=== PATIENT | female | born 1985 | race Caucasian/White ===

== ENCOUNTER 2019-02-05 17:08 | Outpatient (CLI) | payer OTHER ==
[2019-02-05 17:55] VITALS: BP 124/69
[2019-02-05 19:08] LABS: MICROSCOPIC AUTO
[2019-02-05 19:09] LABS: CULTURE INDICATED? NO
== END 2019-02-05 19:30 | disposition home or self-care (01) ==
LOC: LDOP 17:08
PROVIDERS: ATTEND Obstetrics & Gynecology
DX: O42.912 Preterm premature rupture of membranes, unspecified as to length of time between rupture and onset of labor, second trimester (principal); Z3A.20 20 weeks gestation of pregnancy
CPT/HCPCS: 59025; 81001; 84112; 99211; G0463

== ENCOUNTER 2019-04-11 14:30 | Outpatient (CLI) | payer OTHER, MEDICAID ==
[~2019-04-11] VITALS: Ht 175.3 cm; Wt 97.7 kg
== END 2019-04-11 16:24 | disposition home or self-care (01) ==
LOC: LDOP 14:30
PROVIDERS: ATTEND Obstetrics & Gynecology
DX: O26.893 Other specified pregnancy related conditions, third trimester (principal); R10.9 Unspecified abdominal pain; Z3A.29 29 weeks gestation of pregnancy
CPT/HCPCS: 59025; 81003; 87086; 99201; G0463

== ENCOUNTER 2019-04-13 12:11 | Outpatient (CLI) | payer OTHER, MEDICAID ==
[~2019-04-13] VITALS: Ht 175.3 cm; Wt 97.7 kg
[2019-04-13 12:17] VITALS: BP 116/67
== END 2019-04-13 12:50 | disposition home or self-care (01) ==
LOC: LDOP 12:11
PROVIDERS: ATTEND Obstetrics & Gynecology
DX: O26.893 Other specified pregnancy related conditions, third trimester (principal); R42 Dizziness and giddiness; Z3A.29 29 weeks gestation of pregnancy
CPT/HCPCS: 59025; 99211; G0463

== ENCOUNTER 2019-04-24 10:31 | Outpatient (CLI) | payer OTHER, MEDICAID ==
[~2019-04-24] VITALS: Ht 175.3 cm; Wt 97.7 kg
[2019-04-24 10:44] VITALS: BP 120/67
== END 2019-04-24 11:15 | disposition home or self-care (01) ==
LOC: LDOP 10:31
PROVIDERS: ATTEND Obstetrics & Gynecology
DX: O26.899 Other specified pregnancy related conditions, unspecified trimester (principal); Z3A.00 Weeks of gestation of pregnancy not specified
CPT/HCPCS: 59025; 99211; G0463

== ENCOUNTER 2019-05-05 18:54 | Outpatient (CLI) | payer OTHER, MEDICAID ==
[~2019-05-05] VITALS: Ht 175.3 cm; Wt 100.0 kg
[2019-05-05 19:48] LABS: MICROSCOPIC NOT IND
== END 2019-05-05 20:15 | disposition home or self-care (01) ==
LOC: LDOP 18:54
PROVIDERS: ATTEND Obstetrics & Gynecology
DX: O26.893 Other specified pregnancy related conditions, third trimester (principal); R60.9 Edema, unspecified; Z3A.33 33 weeks gestation of pregnancy
CPT/HCPCS: 59025; 81003; 87086; 99211; G0463

== ENCOUNTER 2019-05-07 19:33 | Outpatient (CLI) | payer OTHER, MEDICAID ==
[~2019-05-07] VITALS: Ht 175.3 cm; Wt 102.3 kg
[2019-05-07] MEDS ORDERED: PREN-59 PO (19:50)
== END 2019-05-07 20:12 | disposition home or self-care (01) ==
LOC: LDOP 19:33
PROVIDERS: ATTEND Obstetrics & Gynecology
DX: O36.8130 Decreased fetal movements, third trimester, not applicable or unspecified (principal); Z3A.34 34 weeks gestation of pregnancy
CPT/HCPCS: 59025; 99211; G0463

== ENCOUNTER 2019-05-09 13:14 | Outpatient (CLI) | payer OTHER, MEDICAID ==
[~2019-05-09] VITALS: Ht 175.3 cm; Wt 102.2 kg
[~2019-05-09 13:14] MED LIST: PREN-59 PO
[2019-05-09 13:31] VITALS: BP 127/74
[2019-05-09 14:35] LABS: AMPHETAMINE SCREEN, URINE Negative (Negative); BARBITURATE SCREEN, URINE Negative (Negative); BENZODIAZEPINE SCREEN, URINE Negative (Negative); CANNABINOID SCREEN, URINE Negative (Negative); COCAINE SCREEN, URINE Negative (Negative); METHADONE SCREEN, URINE Negative (Negative); OPIATE SCREEN, URINE Negative (Negative)
[2019-05-09 14:36] LABS: MICROSCOPIC NOT IND
== END 2019-05-09 14:55 | disposition home or self-care (01) ==
LOC: LDOP 13:14
PROVIDERS: ATTEND Obstetrics & Gynecology
DX: O36.8130 Decreased fetal movements, third trimester, not applicable or unspecified (principal); Z3A.34 34 weeks gestation of pregnancy
CPT/HCPCS: 59025; 80307; 81003; 87086; 99211; G0463

== ENCOUNTER 2020-07-30 08:13 | Emergency (ER) | payer MEDICAID, OTHER ==
[~2020-07-30] VITALS: Ht 175.3 cm; Wt 87.8 kg
--- NOTE | 2020-07-30 10:17 | NUR ---
PT TO ROOM FROM LOBBY AT THIS TIME.
--- NOTE | 2020-07-30 10:19 | NUR ---
PT STATES SHE HAS A BLISTER ON HER SECOND TOE ON RIGHT FOOT. PT STATES IT IS EXTREMELY TENDER AND IS STARTING TO HURT IN THE BALL OF HER FOOT.
[2020-07-30] MEDS ORDERED: CEPHALEXIN 500 MG CAPSULE PO ONE (10:30)
[2020-07-30] MEDS ORDERED: SULFAMETH./TRIMETHOPRIM DS 800MG/160MG TABLET PO ONE (10:30)
[2020-07-30] MEDS ORDERED: SULFAMETH./TRIMETHOPRIM DS 800MG/160MG TABLET ONE (10:34)
[2020-07-30] MEDS ORDERED: CEPHALEXIN 500 MG CAPSULE ONE (10:34)
[2020-07-30 11:29] VITALS: BP 131/89
== END 2020-07-30 11:31 | disposition home or self-care (01) ==
LOC: ED 10:39
DX: L02.611 Cutaneous abscess of right foot (principal); M79.674 Pain in right toe(s)
CPT/HCPCS: 99283

== ENCOUNTER 2020-08-01 09:44 | Emergency (ER) | payer MEDICAID ==
[~2020-08-01] VITALS: Ht 175.3 cm; Wt 88.0 kg
[2020-08-01 09:46] VITALS: BP 122/74
[2020-08-01] MEDS ORDERED: LIDOCAINE-MPF 1%, 5ML INFIL ONE (10:30)
== END 2020-08-01 11:04 | disposition home or self-care (01) ==
LOC: ED 09:58
DX: L02.611 Cutaneous abscess of right foot (principal)
CPT/HCPCS: 10060; 99282

== ENCOUNTER 2020-08-03 10:20 | Emergency (ER) | payer MEDICAID ==
[~2020-08-03] VITALS: Ht 175.3 cm; Wt 87.4 kg
[2020-08-03 10:31] VITALS: BP 124/76
--- NOTE | 2020-08-03 10:40 | NUR ---
PT AMBULATORY TO ROOM 21 W/ C/O 2ND RIGHT TOE PAIN, REDNESS, SWELLING THAT HAS NOT DECREASED. PT WAS SEEN HERE 4 DAYS AGO AND WAS PRESCRIBED KEFLEX AND BACTRIM. WAS SEEN AGAIN 2 DAYS AGO AND HAD I&D. TOE STILL NOT IMPROVED. PT DENIES HX DM. [facility]
[2020-08-03 11:33] LABS: BASOPHILS % (AUTO) 1 % (0-1); EOSINOPHILS % (AUTO) 5 % (1-7); LYMPHOCYTES % (AUTO) 24 % (22-44); MEAN CORPUSCULAR HEMOGLOBIN 30.8 pg (27.0-34.8); MEAN CORPUSCULAR HGB CONC 33.6 g/dL (32.4-35.8); MEAN PLATELET VOLUME 9.4 fL (7.4-10.4); MONOCYTES % (AUTO) 11 % (2-9); NEUTROPHILS % (AUTO) 60 % (42-75); PLATELET COUNT 186 x10^3/uL (130-400); RED BLOOD COUNT 4.53 x10^6/uL (3.82-5.3); RED CELL DISTRIBUTION WIDTH 12.8 % (9.6-15.2)
[2020-08-03 11:37] LABS: MD NO
--- NOTE | 2020-08-03 11:40 | NUR ---
PT CHART REVIEWED AND PLACED FOR RECHECK.
[2020-08-03] MEDS ORDERED: CEFTRIAXONE 1,000 MG IM ONE (12:00)
[2020-08-03] MEDS ORDERED: LIDOCAINE-MPF 1%, 5ML ONE (12:06)
[2020-08-03] MEDS ORDERED: CEFTRIAXONE 1,000 MG ONE (12:06)
== END 2020-08-03 12:33 | disposition home or self-care (01) ==
LOC: ED 10:50
DX: L03.031 Cellulitis of right toe (principal); M79.89 Other specified soft tissue disorders
CPT/HCPCS: 36415; 85025; 96372; 99283; J0696